=== PATIENT | female | born 1980 | race Caucasian/White ===

== ENCOUNTER 2022-11-03 18:26 | Emergency (ER) | payer OTHER, SELFPAY ==
[2022-11-03 18:32] VITALS: BP 123/76; PULSE 86; RESP 17; TEMP 37.9; O2SAT 99; BMI 30.2
--- NOTE | 2022-11-03 19:15 | PC.NURSE ---
Pt has dry skin to left elbow and exfoliated yesterday and today left elbow is now red, swollen, and sore to touch. Pt states it hurts to move. Pt has chills and low grade fever at this time.
--- NOTE | 2022-11-03 19:19 | ED.SKABFB1 ---
HPI - Skin/Abscess/Foreign Bdy General Chief complaint: Skin/Abscess/Foreign Body Stated complaint: ELBOW INJURY Time Seen by Provider: 11/03/22 19:04 Source: patient Mode of arrival: walk-in Limitations: no limitations History of Present Illness HPI narrative: This 42-year-old female presents for evaluation of left elbow tenderness with pain with range of motion, mild swelling, redness and chills today. The patient exfoliated her elbows on Monday while in the shower. She has a history of dry skin on her elbows. She states that she worked out yesterday and today started having some pain in her left elbow that she thought was from working out. She then touched it and it was warm and tender. She has mild swelling, an area of open skin and redness at the left elbow bursa. She is right-hand dominant. She is not diabetic. She does have a mild sore throat and a swollen lymph node on the right and states her family is getting over a viral infection. She denies any cough, chest pain, nausea or vomiting. Related Data Allergies Allergy/AdvReac Type Severity Reaction Status Date / Time No Known Drug Allergies Allergy Verified 11/03/22 18:32 Review of Systems ROS Status of ROS 10 or more systems reviewed and unremarkable except as noted in history and below [facility] Social History Smoking status: Never smoker Exam Narrative Exam Narrative: Constitutional: Well appearing female resting comfortably on a stretcher, no distress noted Vital signs: Patient is febrile with a temperature of 100.2, and she has normal pulse, normal blood pressure, she is not hypoxic with pulse ox 99 percent on room air HEENT: Normocephalic atraumatic, mucous memberss are moist and pink, oropharynx is normal-appearing with no redness or swelling of the posterior pharynx or tonsils Neck: Supple, no meningeal signs, small right-sided anterior cervical lymphadenopathy Chest: Lungs are clear with good air entry, there is no wheezing rhonchi or rales appreciated CVS: Regular rate and rhythm, no murmurs rubs or gallops Abdomen: Soft, nondistended, nontender no rebound guarding or rigidity Extremity: Mild swelling and tenderness to the bursa of the left elbow. There is an excoriated area of skin overlying the olecranon bursa. There is no lymphangitic streaking. Full range of motion appreciated, architect internship strengths are intact Neuro: No focal deficits Psych: Normal exam Constitutional Vital Signs - 24 hr 11/03/22 18:32 11/03/22 19:42 Temperature 100.2 F H 100.2 F H Pulse Rate [Monitor] 86 Respiratory Rate 17 Blood Pressure [Right Arm] 123/76 H Pulse Oximetry 99 Oxygen Delivery Method Room Air Course Vital Signs Vital signs: Vital Signs Temperature 100.2 F H 11/03/22 18:32 Pulse Rate 86 11/03/22 18:32 Respiratory Rate 17 11/03/22 18:32 Blood Pressure 123/76 H 11/03/22 18:32 Pulse Oximetry 99 11/03/22 18:32 Oxygen Delivery Method Room Air 11/03/22 18:32 Temperature 100.2 F H 11/03/22 19:42 Pulse Rate 86 11/03/22 18:32 Respiratory Rate 17 11/03/22 18:32 Blood Pressure 123/76 H 11/03/22 18:32 Pulse Oximetry 99 11/03/22 18:32 Oxygen Delivery Method Room Air 11/03/22 18:32 MDM - Skin/Abscess/Foreign Bdy MDM Narrative Medical decision making narrative: As 42-year-old female who is right-hand dominant presents for evaluation of redness, tenderness and swelling to the bursa of the left elbow. The patient exfoliated her elbow in the shower and has an area of skin over the left bursa. She states she started having some pain in this area today and thought it radiates froom working out but then she started having some chills. Her brother is a physician recycling assistant and she contacted him who referred her to the emergency department. She does not have a low-grade fever 100.2. She has no other nidus of infection that I was able to ascertain. She does not have a history of MRSA. An IV was placed and she was medicated with Tylenol, Toradol, IV fluids and 3 g of Unasyn. She has a mild elevation in white count at 13.4. She is otherwise stable for discharge. She'll be discharged home with recommendation for Epsom salts soaks 3-4 times a day and oral Augmentin. She was encouraged to return to emergency department for worsening symptoms, lymphangitic streaking, further decreased range of motion of the extremity or any concerns. Lab Data Labs: Lab Results 11/03/22 Range/Units 19:25 WBC 13.4 H (4.0-11.0) 10^3/uL RBC 4.49 (4.20-5.40) 10^6/uL Hgb 12.6 (12.0-16.0) g/dL Hct 39.1 (36.0-48.0) % MCV 87.1 (81.0-99.0) fL MCH 28.1 (26.7-34.0) pg MCHC 32.2 (29.9-35.2) g/dL RDW 13.3 (11.0-15.0) % Plt Count 433 (150-450) 10^3/uL MPV 9.5 (9.5-13.5) fL Neut % (Auto) 77.2 H (43.0-75.0) % Lymph % (Auto) 13.4 L (20.5-60.0) % [place] % (Auto) 6.9 (1.7-12.0) % Eos % (Auto) 1.6 (0.9-7.0) % Baso % (Auto) 0.6 (0.2-2.0) % Neut # (Auto) 10.4 H (1.4-6.5) 10^3/uL Lymph # (Auto) 1.8 (1.2-3.8) 10^3/uL [place] # (Auto) 0.9 H (0.3-0.8) 10^3/uL Eos # (Auto) 0.2 (0.0-0.7) 10^3/uL Baso # (Auto) 0.1 (0.0-0.1) 10^3/uL Abs Immat Gran (auto) 0.04 H (0.00-0.03) 10^3/uL Imm/Tot Granulo (auto) 0.3 (0.0-0.5) % Discharge Plan Discharge Chief Complaint: Skin/Abscess/Foreign Body Clinical Impression: Olecranon bursitis of left elbow, Cellulitis Patient Disposition: Home, Self-Care Time of Disposition Decision: 19:54 Condition: Good Stand Alone Forms: Portal Instructions Referrals: AMMON VERNON [Primary Care Provider] - 1 week
[2022-11-03 19:35] LABS: Basophils Absolute Auto 0.1 10^3/uL (0.0-0.1); Basophils Percent Auto 0.6 % (0.2-2.0); Eosinophils Absolute Auto 0.2 10^3/uL (0.0-0.7); Eosinophils Percent Auto 1.6 % (0.9-7.0); Hematocrit 39.1 % (36.0-48.0); Hemoglobin 12.6 g/dL (12.0-16.0); Immature Granulocytes Abs Auto 0.04 10^3/uL (0.00-0.03); Immature Granulocytes Pct Auto 0.3 % (0.0-0.5); Lymphocytes Absolute Auto 1.8 10^3/uL (1.2-3.8); Lymphocytes Percent Auto 13.4 % (20.5-60.0); Mean Corpuscular HGB Conc 32.2 g/dL (29.9-35.2); Mean Corpuscular Hemoglobin 28.1 pg (26.7-34.0); Mean Corpuscular Volume 87.1 fL (81.0-99.0); Mean Platelet Volume 9.5 fL (9.5-13.5); Monocytes Absolute Auto 0.9 10^3/uL (0.3-0.8); Monocytes Percent Auto 6.9 % (1.7-12.0); Neutrophils Absolute Auto 10.4 10^3/uL (1.4-6.5); Neutrophils Percent Auto 77.2 % (43.0-75.0); Platelet Count 433 10^3/uL (150-450); Red Blood Count 4.49 10^6/uL (4.20-5.40); Red Cell Distribution Width 13.3 % (11.0-15.0); White Blood Count 13.4 10^3/uL (4.0-11.0)
[2022-11-03 19:42] VITALS: TEMP 37.9
[2022-11-03] MEDS: KETOROLAC TROMETHAMINE 30 MG/ML VIAL IVP (19:42)
[2022-11-03] MEDS: ACETAMINOPHEN 325 MG TABLET 650 MG PO (19:42)
[2022-11-03] MEDS: AMPICILLIN SODIUM/SULBACTAM NA 3 GM in 0.9 % SODIUM CHLORIDE 100 ML IV (19:42)
[2022-11-03] MEDS: 0.9 % SODIUM CHLORIDE 1,000 ML 1000 ML IV (19:43)
[2022-11-03 20:16] VITALS: TEMP 38.4
== END 2022-11-03 20:42 | disposition home or self-care (01) ==
PROVIDERS: Emergency Provider Emergency Medicine; PCP Family Medicine
DX: M70.22 Olecranon bursitis, left elbow (principal); L03.114 Cellulitis of left upper limb; R50.9 Fever, unspecified
CPT/HCPCS: 36415; 85025; 96365; 96375; 99284

== ENCOUNTER 2022-11-04 11:17 | Observation (INO) | payer OTHER, SELFPAY ==
[2022-11-04] VITALS (11 sets, daily range): BP systolic 112–119; BP diastolic 73–81; PULSE 85–96; RESP 16–18; TEMP 37–38.3; O2SAT 95–100; BMI 30.2
--- NOTE | 2022-11-04 11:31 | XR_ITS ---
[facility] [place] [id number] Patient Name: JOHN SANTOS MRN: [id number] date: 1980 Sex: F Assigned Patient Location: ER Current Patient Location: ER Accession/Order Number: [id number] Exam Date: 11/04/2022 12:00 Report Date: 11/04/2022 12:23 At the request of: MARGARITA CAREY Procedure: XR elbow LT min 3V EXAMINATION: XR elbow LT min 3V, [id number] HISTORY: pain, cellulitis, swelling COMPARISON: None. FINDINGS/IMPRESSION: No fracture, dislocation, or suspicious osseous lesion. No elbow joint effusion. Moderate soft tissue swelling over the olecranon and extending distally along the proximal forearm. This is suspect for cellulitis as extent is more than typically seen with olecranon bursitis. No evidence of subcutaneous emphysema. Electronically authenticated by: LINDA PELAEZ Date: 11/04/2022 12:23
--- NOTE | 2022-11-04 11:32 | ED.EXTPRO1 ---
HPI - Extremity Problem General Chief complaint: Extremity Problem, Nontraumatic Stated complaint: LOCALIZED SWELLING/REDNESS LEFT ELBOW Time Seen by Provider: 11/04/22 11:19 Source: patient Mode of arrival: walk-in History of Present Illness HPI Narrative: 42-year-old female presented for redness and swelling to her left elbow. She was seen here last night and had blood work done and at that time had a fever. She was given IV antibiotics and discharged home. She hasn't even had a chance to fill her prescription yet and the redness has expanded. She did not have a fever at triage today. No vomiting. There was no injury but she had exfoliated some dry skin recently. The pain is moderate Related Data Allergies Allergy/AdvReac Type Severity Reaction Status Date / Time No Known Drug Allergies Allergy Verified 11/04/22 11:25 Review of Systems ROS Narrative A ten point review of systems is negative except as noted above. PFSH PFSH Social History Smoking status: Never smoker Exam Narrative Exam Narrative: Nurses note and vital signs reviewed and patient is not hypoxic. General: The patient appears well and in no apparent distress. Patient is resting comfortably on cart. Skin: Warm, dry, no pallor noted. There is no rash noted. Head: Normocephalic, atraumatic Eye: Normal conjunctiva, no drainage Ears, Nose, Mouth, and Throat: oral mucosa is moist. Nares patent. Cardiovascular: Regular Rate and Rhythm Respiratory: Patient is in no distress, no accessory muscle use, lungs are clear to auscultation, no wheezing, rales or rhonchi Back: non-tender GI: soft and nontender Musculoskeletal: left elbow has erythema and swelling. The area of erythema is far outside of the line that was drawn last night to indicate area of redness. Neurological: A&O x4, normal speech Psychiatric: Cooperative Constitutional Vital Signs - 24 hr 11/04/22 11:21 Temperature 98.6 F Pulse Rate [Monitor] 92 H Respiratory Rate 18 Blood Pressure [Right Arm] 119/81 H Pulse Oximetry 100 Oxygen Delivery Method Room Air Course Vital Signs Vital signs: Vital Signs Temperature 98.6 F 11/04/22 11:21 Pulse Rate 92 H 11/04/22 11:21 Respiratory Rate 18 11/04/22 11:21 Blood Pressure 119/81 H 11/04/22 11:21 Pulse Oximetry 100 11/04/22 11:21 Oxygen Delivery Method Room Air 11/04/22 11:21 Temperature 98.6 F 11/04/22 11:21 Pulse Rate 92 H 11/04/22 11:21 Respiratory Rate 18 11/04/22 11:21 Blood Pressure 119/81 H 11/04/22 11:21 Pulse Oximetry 100 11/04/22 11:21 Oxygen Delivery Method Room Air 11/04/22 11:21 MDM - Extremity (Nontraumatic) MDM Narrative Medical decision making narrative: WBC today is eighteen thousand, up from thirteen thousand last night. X-ray shows soft tissue swelling. I've no clinical suspicion of septic joint. My clinical impression is that she has cellulitis and she's failed outpatient therapy social be admitted. She was given IV vancomycin. Treatment diagnosis and its position were discussed with the patient. Differential Diagnosis Differential diagnosis: Likely cellulitis and other (bursitis, cellulitis, septic joint) Lab Data Attestation: I reviewed the patient's lab results. Labs: Lab Results 11/04/22 Range/Units 11:57 WBC 18.0 H (4.0-11.0) 10^3/uL RBC 4.37 (4.20-5.40) 10^6/uL Hgb 12.3 (12.0-16.0) g/dL Hct 38.6 (36.0-48.0) % MCV 88.3 (81.0-99.0) fL MCH 28.1 (26.7-34.0) pg MCHC 31.9 (29.9-35.2) g/dL RDW 13.2 (11.0-15.0) % Plt Count 425 (150-450) 10^3/uL MPV 9.4 L (9.5-13.5) fL Neut % (Auto) 75.4 H (43.0-75.0) % Lymph % (Auto) 12.6 L (20.5-60.0) % [place] % (Auto) 10.5 (1.7-12.0) % Eos % (Auto) 0.6 L (0.9-7.0) % Baso % (Auto) 0.5 (0.2-2.0) % Neut # (Auto) 13.5 H (1.4-6.5) 10^3/uL Lymph # (Auto) 2.3 (1.2-3.8) 10^3/uL [place] # (Auto) 1.9 H (0.3-0.8) 10^3/uL Eos # (Auto) 0.1 (0.0-0.7) 10^3/uL Baso # (Auto) 0.1 (0.0-0.1) 10^3/uL Abs Immat Gran (auto) 0.08 H (0.00-0.03) 10^3/uL Imm/Tot Granulo (auto) 0.4 (0.0-0.5) % Sodium 137 (136-145) mmol/L Potassium 3.8 (3.5-5.1) mmol/L Chloride 105 (98-107) mmol/L Carbon Dioxide 20.8 L (21.0-32.0) mmol/L Anion Gap 15.0 BUN 6.0 L (7.0-18.0) mg/dL Creatinine 0.92 (0.55-1.02) mg/dL Est GFR ( Amer) >60 (>=60) Est GFR (Non-Af Amer) >60 (>=60) BUN/Creatinine Ratio 6.5 Glucose 106 (74-106) mg/dL Calcium 9.2 (8.5-10.1) mg/dL Discharge Plan Discharge Chief Complaint: Extremity Problem, Nontraumatic Clinical Impression: Cellulitis Patient Disposition: Admitted As Inpatient Time of Disposition Decision: 12:42 Condition: Good Referrals: AMMON VERNON [Primary Care Provider] - 1 week
--- NOTE | 2022-11-04 11:58 | PC.NURSE ---
left elbow swollen painful and red. pt states was seen last night in er for same issue and was given iv ATB for cellulitis. pt states symptoms became worse today and felt she needed to be seen again. pt also states she was given a written script for ATB but has not filled them yet.
[2022-11-04 12:08] LABS: Basophils Absolute Auto 0.1 10^3/uL (0.0-0.1); Basophils Percent Auto 0.5 % (0.2-2.0); Eosinophils Absolute Auto 0.1 10^3/uL (0.0-0.7); Eosinophils Percent Auto 0.6 % (0.9-7.0); Hematocrit 38.6 % (36.0-48.0); Hemoglobin 12.3 g/dL (12.0-16.0); Immature Granulocytes Abs Auto 0.08 10^3/uL (0.00-0.03); Immature Granulocytes Pct Auto 0.4 % (0.0-0.5); Lymphocytes Absolute Auto 2.3 10^3/uL (1.2-3.8); Lymphocytes Percent Auto 12.6 % (20.5-60.0); Mean Corpuscular HGB Conc 31.9 g/dL (29.9-35.2); Mean Corpuscular Hemoglobin 28.1 pg (26.7-34.0); Mean Corpuscular Volume 88.3 fL (81.0-99.0); Mean Platelet Volume 9.4 fL (9.5-13.5); Monocytes Absolute Auto 1.9 10^3/uL (0.3-0.8); Monocytes Percent Auto 10.5 % (1.7-12.0); Neutrophils Absolute Auto 13.5 10^3/uL (1.4-6.5); Neutrophils Percent Auto 75.4 % (43.0-75.0); Platelet Count 425 10^3/uL (150-450); Red Blood Count 4.37 10^6/uL (4.20-5.40); Red Cell Distribution Width 13.2 % (11.0-15.0)
[2022-11-04 12:28] LABS: BUN Creatinine Ratio 6.5; Calcium 9.2 mg/dL (8.5-10.1); Carbon Dioxide 20.8 mmol/L (21.0-32.0); Chloride 105 mmol/L (98-107); Estimated GFR (African America >60 (>=60); Estimated GFR (Non-African Ame >60 (>=60); Glucose 106 mg/dL (74-106); Potassium 3.8 mmol/L (3.5-5.1); Sodium 137 mmol/L (136-145)
[2022-11-04] MEDS: VANCOMYCIN HCL 2,000 MG in 0.9 % SODIUM CHLORIDE 500 ML 250 MG IV (13:08)
[2022-11-04] MEDS: 0.9 % SODIUM CHLORIDE 1,000 ML 1000 ML IV ×2 (15:25→16:31)
[2022-11-04] MEDS: LACTATED RINGER'S SOLUTION 1,000 ML 125 ML IV (17:52)
[2022-11-04] MEDS: ENOXAPARIN SODIUM 40 MG/0.4 ML SYRINGE SUBQ (17:53)
[2022-11-04] MEDS: LINEZOLID IN DEXTROSE 5% 600 MG/300 ML PIGGYBACK 300 MG IV (17:53)
[2022-11-04] MEDS: ACETAMINOPHEN 325 MG TABLET 650 MG PO (21:06)
[2022-11-05] VITALS (15 sets, daily range): BP systolic 105–116; BP diastolic 64–74; PULSE 77–91; RESP 18–20; TEMP 37.2–37.7; O2SAT 91–95
--- NOTE | 2022-11-05 00:20 | P.HP_ITS ---
H&P: HPI History of Present Illness Chief complaint: LOCALIZED SWELLING/REDNESS LEFT ELBOW Narrative: Delayed note for my encounter on 11/04/22 42 y o with no sig PMHx was seen in ED on 11/03 for pain/erythema over left elbow for which she received IV unasyn and was discharged on oral abx for cellulitis. Patient came back next day with sig worsening of her symptoms along with fevers, increased HR. Swelling, erythema and skin induration was noted to have sig worsened and had spread beyond original demarcation line drawn in ED visit on 11/03. She also had worsening leukocytosis, tachycardia and presentation was c/w Sepsis. Patient admitted for observation for sepsis sec to Cellulitis. In ED she receied IV vancomycin which was switched to Zyvox for ease of administration. Patient feels better after initial resuscitation. She is able to move her elbow joint and there is no concern for possible joint involvement. Patient denies any sig trauma to her elbow. Review of Systems ROS Status of ROS 10 or more systems reviewed and unremarkable except as noted in history and below [facility] Medical History Surgical History Social History Smoking status: Never smoker Do you think of yourself as: straight/heterosexual Gender Identity: female Meds Home Medications and Allergies Home Medications Medication Instructions Recorded Confirmed Type metoprolol succinate 25 mg 25 mg PO DAILY 11/04/22 11/04/22 History tablet,extended release 24 hr Allergies Allergy/AdvReac Type Severity Reaction Status Date / Time No Known Drug Allergies Allergy Verified 11/04/22 11:25 Exam Constitutional Vital Signs - 24 hr 11/04/22 11:21 11/04/22 14:30 11/04/22 14:30 Temperature 98.6 F 100.4 F H Pulse Rate 94 H Pulse Rate [Monitor] 92 H 94 H Respiratory Rate 18 16 Blood Pressure [Right Arm] 119/81 H 113/73 Pulse Oximetry 100 96 Oxygen Delivery Method Room Air Room Air Room Air 11/04/22 15:52 11/04/22 17:55 11/04/22 19:24 Temperature Pulse Rate 95 H 95 H Pulse Rate [Monitor] Respiratory Rate 16 Blood Pressure [Right Arm] Pulse Oximetry Oxygen Delivery Method 11/04/22 19:53 11/04/22 20:57 11/04/22 21:06 Temperature 100.4 F H 100.9 F H Pulse Rate 93 H 91 H Pulse Rate [Monitor] Respiratory Rate 18 Blood Pressure [Right Arm] 112/73 Pulse Oximetry 95 Oxygen Delivery Method Room Air 11/04/22 21:52 11/04/22 22:22 11/04/22 23:57 Temperature 99.8 F H Pulse Rate 96 H 85 Pulse Rate [Monitor] Respiratory Rate Blood Pressure [Right Arm] Pulse Oximetry Oxygen Delivery Method Documenting provider has reviewed patient's vital signs: yes Common normals: no apparent distress General appearance: cooperative and comfortable HENMT Common normals: normocephalic and head/scalp atraumatic Eye Common normals: conjunctivae normal and no scleral icterus Respiratory Common normals: normal respiratory effort, no use of accessory muscles and clear to auscultation bilaterally Cardio Common normals: no JVD, regular rate, regular rhythm, S1 normal heart sound, S2 normal heart sound and no murmurs GI Common normals: Normal to inspection, nondistended, normoactive bowel sounds present, soft to palpation, non-tender and no hepatosplenomegaly Extremity Common normals: full ROM Left upper extremity: elbow joint Left elbow: inspection (Swelling, erythema of skin around elbow joint. Skin induration. ), ROM (normal ROM) and neurovascular exam (Normal pulse, sensation) Neuro Common normals: oriented x3, moves all extremities, no focal motor deficits and no sensory deficits noted Psych Common normals: mental status grossly normal, thought process normal, denies homicidal ideation and denies suicidal ideation Results Labs Labs: Short CBC 11/04/22 Range/Units 11:57 WBC 18.0 H (4.0-11.0) 10^3/uL Hgb 12.3 (12.0-16.0) g/dL Hct 38.6 (36.0-48.0) % Plt Count 425 (150-450) 10^3/uL BMP 11/04/22 11:57 Sodium 137 Potassium 3.8 Chloride 105 Carbon Dioxide 20.8 L BUN 6.0 L Creatinine 0.92 Glucose 106 Calcium 9.2 Assessment and Plan Assessment and Plan (1) Sepsis: Assessment and Plan: HR >90, Tmax 100.9, WBC 18 k with source of infection. On IV zyvox. C/w IVF F/u cx. No drainable abscess based on exam Qualifiers: Sepsis type: sepsis due to unspecified organism Sepsis acute organ dysfunction status: without acute organ dysfunction Qualified Code(s): A41.9 - Sepsis, unspecified organism (2) Cellulitis: Assessment and Plan: left elbow cellulitis. on IV fluids, IV zyvox. No evidence of joint involvement. Check A1C
[2022-11-05] MEDS: LACTATED RINGER'S SOLUTION 1,000 ML 125 ML IV ×3 (02:25→21:00)
[2022-11-05] MEDS: LINEZOLID IN DEXTROSE 5% 600 MG/300 ML PIGGYBACK 150 MG IV (04:00)
[2022-11-05 05:37] LABS: Basophils Absolute Auto 0.1 10^3/uL (0.0-0.1); Basophils Percent Auto 0.5 % (0.2-2.0); Eosinophils Absolute Auto 0.2 10^3/uL (0.0-0.7); Eosinophils Percent Auto 1.4 % (0.9-7.0); Hematocrit 32.5 % (36.0-48.0); Hemoglobin 10.5 g/dL (12.0-16.0); Immature Granulocytes Abs Auto 0.08 10^3/uL (0.00-0.03); Immature Granulocytes Pct Auto 0.5 % (0.0-0.5); Lymphocytes Absolute Auto 2.7 10^3/uL (1.2-3.8); Lymphocytes Percent Auto 18.5 % (20.5-60.0); Mean Corpuscular HGB Conc 32.3 g/dL (29.9-35.2); Mean Corpuscular Hemoglobin 28.2 pg (26.7-34.0); Mean Corpuscular Volume 87.4 fL (81.0-99.0); Mean Platelet Volume 9.6 fL (9.5-13.5); Monocytes Absolute Auto 1.4 10^3/uL (0.3-0.8); Monocytes Percent Auto 9.2 % (1.7-12.0); Neutrophils Absolute Auto 10.3 10^3/uL (1.4-6.5); Neutrophils Percent Auto 69.9 % (43.0-75.0); Platelet Count 390 10^3/uL (150-450); Red Blood Count 3.72 10^6/uL (4.20-5.40); Red Cell Distribution Width 13.3 % (11.0-15.0); White Blood Count 14.7 10^3/uL (4.0-11.0)
[2022-11-05 05:51] LABS: Estimated Average Glucose 111 mg/dL; Glycohemoglobin A1C 5.5 % (4.5-6.2)
[2022-11-05 06:07] LABS: Alanine Aminotransferase 42 U/L (14-59); Albumin Globulin Ratio 0.8; Albumin Level 2.8 g/dL (3.4-5.0); Alkaline Phosphatase 82 U/L (46-116); Anion Gap 11.4; Aspartate Amino Transferase 40 U/L (15-37); BUN Creatinine Ratio 4.9; Bilirubin Total 0.7 mg/dL (0.2-1.0); Calcium 8.6 mg/dL (8.5-10.1); Carbon Dioxide 22.4 mmol/L (21.0-32.0); Chloride 109 mmol/L (98-107); Estimated GFR (African America >60 (>=60); Estimated GFR (Non-African Ame >60 (>=60); Globulin 3.7 g/dL; Glucose 131 mg/dL (74-106); Potassium 3.8 mmol/L (3.5-5.1); Sodium 139 mmol/L (136-145); Total Protein 6.5 g/dL (6.4-8.2)
[2022-11-05] MEDS: PIPERACILLIN SODIUM/TAZOBACTAM 3.375 GM in 0.9 % SODIUM CHLORIDE 50 ML IV ×2 (13:34→21:01)
--- NOTE | 2022-11-05 14:02 | PM.PN ---
Progress Note: Subjective Subjective Interval history: Patient feels well this am. Afebrile and no nausea. WBC improved. Redness around elbow has spread. Normal appetite and no emesis or diarrhea. No SOB or cough. No chest pain or palpitations. Exam Constitutional Vital Signs - 24 hr 11/04/22 14:30 11/04/22 14:30 11/04/22 15:52 Temperature 100.4 F H Pulse Rate 94 H 95 H Pulse Rate [Monitor] 94 H Respiratory Rate 16 Blood Pressure [Right Arm] 113/73 Pulse Oximetry 96 Oxygen Delivery Method Room Air Room Air 11/04/22 17:55 11/04/22 19:24 11/04/22 19:53 Temperature Pulse Rate 95 H 93 H Pulse Rate [Monitor] Respiratory Rate 16 Blood Pressure [Right Arm] Pulse Oximetry Oxygen Delivery Method 11/04/22 20:57 11/04/22 21:06 11/04/22 21:52 Temperature 100.4 F H 100.9 F H Pulse Rate 91 H 96 H Pulse Rate [Monitor] Respiratory Rate 18 Blood Pressure [Right Arm] 112/73 Pulse Oximetry 95 Oxygen Delivery Method Room Air 11/04/22 22:22 11/04/22 23:57 11/05/22 01:54 Temperature 99.8 F H Pulse Rate 85 81 Pulse Rate [Monitor] Respiratory Rate Blood Pressure [Right Arm] Pulse Oximetry Oxygen Delivery Method 11/05/22 03:55 11/05/22 05:02 11/05/22 07:53 Temperature 99 F Pulse Rate 81 77 80 Pulse Rate [Monitor] Respiratory Rate 18 Blood Pressure [Right Arm] 105/64 Pulse Oximetry 91 L Oxygen Delivery Method Room Air 11/05/22 09:46 11/05/22 11:52 Temperature Pulse Rate 86 91 H Pulse Rate [Monitor] Respiratory Rate Blood Pressure [Right Arm] Pulse Oximetry Oxygen Delivery Method Documenting provider has reviewed patient's vital signs: yes Common normals: no apparent distress, oriented x3 and alert HENMT Common normals: normocephalic Eye Common normals: PERRL and EOMs intact bilaterally Respiratory Common normals: clear to auscultation bilaterally Cardio Common normals: regular rate, no gallops, no murmurs and no rub GI Common normals: Normal to inspection, nondistended, normoactive bowel sounds present and non-tender Extremity General: no edema Left upper extremity: elbow joint (Mild swelling around elbow and erythema surrounding elbow into forearm ) Progress Note: Objective Labs Labs: Short CBC 11/05/22 Range/Units 05:05 WBC 14.7 H (4.0-11.0) 10^3/uL Hgb 10.5 L (12.0-16.0) g/dL Hct 32.5 L (36.0-48.0) % Plt Count 390 (150-450) 10^3/uL BMP 11/05/22 05:05 Sodium 139 Potassium 3.8 Chloride 109 H Carbon Dioxide 22.4 BUN 4.0 L Creatinine 0.81 Glucose 131 H Calcium 8.6 Liver Function 11/05/22 Range/Units 05:05 Total Bilirubin 0.7 (0.2-1.0) mg/dL AST 40 H (15-37) U/L ALT 42 (14-59) U/L Alkaline Phosphatase 82 (46-116) U/L Albumin 2.8 L (3.4-5.0) g/dL Progress Note: A&P Assessment and Plan (1) Sepsis: Qualifiers: Sepsis acute organ dysfunction status: without acute organ dysfunction Sepsis type: sepsis due to unspecified organism Qualified Code(s): A41.9 - Sepsis, unspecified organism (2) Cellulitis: Plan 1. Cellulitis left elbow 2. Sepsis Erythema worse but WBC improved and afebrile. Possibly related to toxins released from infection and not worsening of infection. Add zosyn and continue zyvox. Monitor and if erythema improved possibly home in am.
[2022-11-05] MEDS: LINEZOLID IN DEXTROSE 5% 600 MG/300 ML PIGGYBACK 300 MG IV (17:14)
[2022-11-06 01:51] VITALS: PULSE 83
[2022-11-06 03:55] VITALS: PULSE 80
[2022-11-06] MEDS: LINEZOLID IN DEXTROSE 5% 600 MG/300 ML PIGGYBACK 200 MG IV (04:31)
[2022-11-06] MEDS: LACTATED RINGER'S SOLUTION 1,000 ML 125 ML IV (04:35)
[2022-11-06 05:12] VITALS: BP 118/75; PULSE 84; RESP 20; TEMP 37.4; O2SAT 94
[2022-11-06 05:34] LABS: Basophils Absolute Auto 0.1 10^3/uL (0.0-0.1); Basophils Percent Auto 0.5 % (0.2-2.0); Eosinophils Absolute Auto 0.2 10^3/uL (0.0-0.7); Eosinophils Percent Auto 1.3 % (0.9-7.0); Hematocrit 32.5 % (36.0-48.0); Hemoglobin 10.5 g/dL (12.0-16.0); Immature Granulocytes Abs Auto 0.07 10^3/uL (0.00-0.03); Immature Granulocytes Pct Auto 0.5 % (0.0-0.5); Lymphocytes Absolute Auto 2.9 10^3/uL (1.2-3.8); Lymphocytes Percent Auto 19.5 % (20.5-60.0); Mean Corpuscular HGB Conc 32.3 g/dL (29.9-35.2); Mean Corpuscular Hemoglobin 27.9 pg (26.7-34.0); Mean Corpuscular Volume 86.4 fL (81.0-99.0); Mean Platelet Volume 9.6 fL (9.5-13.5); Monocytes Absolute Auto 1.2 10^3/uL (0.3-0.8); Monocytes Percent Auto 7.9 % (1.7-12.0); Neutrophils Absolute Auto 10.5 10^3/uL (1.4-6.5); Neutrophils Percent Auto 70.3 % (43.0-75.0); Platelet Count 427 10^3/uL (150-450); Red Blood Count 3.76 10^6/uL (4.20-5.40); Red Cell Distribution Width 13.2 % (11.0-15.0)
[2022-11-06 05:46] VITALS: PULSE 81
[2022-11-06 05:57] LABS: Alanine Aminotransferase 46 U/L (14-59); Albumin Globulin Ratio 0.7; Albumin Level 2.7 g/dL (3.4-5.0); Alkaline Phosphatase 91 U/L (46-116); Aspartate Amino Transferase 28 U/L (15-37); Bilirubin Total 0.6 mg/dL (0.2-1.0); Calcium 9.1 mg/dL (8.5-10.1); Carbon Dioxide 23.7 mmol/L (21.0-32.0); Chloride 108 mmol/L (98-107); Estimated GFR (African America >60 (>=60); Estimated GFR (Non-African Ame >60 (>=60); Globulin 4.1 g/dL; Glucose 119 mg/dL (74-106); Potassium 3.7 mmol/L (3.5-5.1); Sodium 140 mmol/L (136-145); Total Protein 6.8 g/dL (6.4-8.2)
[2022-11-06] MEDS: PIPERACILLIN SODIUM/TAZOBACTAM 3.375 GM in 0.9 % SODIUM CHLORIDE 50 ML IV (06:01)
[2022-11-06 07:52] VITALS: PULSE 77
[2022-11-06 09:54] VITALS: PULSE 83
--- NOTE | 2022-11-06 14:34 | PM.DS1 ---
DS: Providers Provider Date of admission: 11/04/22 14:35 Primary care physician: AMMON VERNON DS: Diagnosis Discharge Diagnosis (1) Sepsis: Qualifiers: Sepsis type: sepsis due to unspecified organism Sepsis acute organ dysfunction status: without acute organ dysfunction Qualified Code(s): A41.9 - Sepsis, unspecified organism (2) Cellulitis: Plan Primary diagnosis: Cellulitis left elbow Secondary diagnosis: Sepsis DS: Summary Hospital Course Hospital Course: Reason for admission: See ER note and H&P for details. 42 y/o female to ER with redness and swelling of left elbow. Developed pain, redness and swelling over a few days. To ER night prior and given IV unasyn for cellulitis. Discharged home with script for oral antibiotics. Next am woke up with worsening redness, pain, and swelling. Did not have a chance to start oral antibiotics. Returned to ER and WBC elevated. Temp 100.9. X-ray with soft tissue swelling but no evidence of osteomyelitis. Admited for treatment. Hospital course: Started lV zyvox. Patient slowly improved. Mild pain and worse if attempt to bend elbow. WBC improved and afebrile. Redness initially started to spread beyond demarcated border on elbow. Added zosyn. Continued to do well. WBC improved and afebrile. Redness and swelling much improved. Mild pain. Discharged home in stable condition. Will take oral bactrim and augmentin x 10 days. F/u with PCP in 1-2 weeks. Status at Discharge Functional status at discharge: independent ambulation Overall status at discharge: patient is back to baseline Time Spent with Patient Time attestation: Total time spent providing and/or coordinating discharge services: Exam Constitutional Vital Signs - 24 hr 11/05/22 15:55 11/05/22 17:38 11/05/22 19:15 Temperature Pulse Rate 90 91 H Respiratory Rate 18 Blood Pressure [Right Arm] Pulse Oximetry Oxygen Delivery Method 11/05/22 20:00 11/05/22 21:26 11/05/22 22:00 Temperature 99.9 F H Pulse Rate 88 88 84 Respiratory Rate 20 Blood Pressure [Right Arm] 116/74 Pulse Oximetry 95 Oxygen Delivery Method Room Air 11/05/22 23:48 11/06/22 01:51 11/06/22 03:55 Temperature Pulse Rate 90 83 80 Respiratory Rate Blood Pressure [Right Arm] Pulse Oximetry Oxygen Delivery Method 11/06/22 05:12 11/06/22 05:46 11/06/22 07:52 Temperature 99.3 F Pulse Rate 84 81 77 Respiratory Rate 20 Blood Pressure [Right Arm] 118/75 Pulse Oximetry 94 L Oxygen Delivery Method Room Air 11/06/22 09:54 Temperature Pulse Rate 83 Respiratory Rate Blood Pressure [Right Arm] Pulse Oximetry Oxygen Delivery Method Documenting provider has reviewed patient's vital signs: yes Common normals: no apparent distress, oriented x3 and alert HENMT Common normals: normocephalic Eye Common normals: PERRL and EOMs intact bilaterally Respiratory Common normals: clear to auscultation bilaterally Cardio Common normals: regular rate, regular rhythm, no gallops, no murmurs and no rub GI Common normals: Normal to inspection, nondistended, normoactive bowel sounds present and non-tender Extremity General: no edema Left upper extremity: elbow joint (Mild swelling and erythema but improved from day prior) DS: Data Data Completed and Pending Labs on day of discharge: Labs from last 24 hours 11/06/22 04:55 WBC 15.0 H RBC 3.76 L Hgb 10.5 L Hct 32.5 L MCV 86.4 MCH 27.9 MCHC 32.3 RDW 13.2 Plt Count 427 MPV 9.6 Neut % (Auto) 70.3 Lymph % (Auto) 19.5 L [place] % (Auto) 7.9 Eos % (Auto) 1.3 Baso % (Auto) 0.5 Neut # (Auto) 10.5 H Lymph # (Auto) 2.9 [place] # (Auto) 1.2 H Eos # (Auto) 0.2 Baso # (Auto) 0.1 Abs Immat Gran (auto) 0.07 H Imm/Tot Granulo (auto) 0.5 Sodium 140 Potassium 3.7 Chloride 108 H Carbon Dioxide 23.7 Anion Gap 12.0 BUN 5.0 L Creatinine 0.84 Est GFR ( Amer) >60 Est GFR (Non-Af Amer) >60 BUN/Creatinine Ratio 6.0 Glucose 119 H Calcium 9.1 Total Bilirubin 0.6 AST 28 ALT 46 Alkaline Phosphatase 91 Total Protein 6.8 Albumin 2.7 L Globulin 4.1 Albumin/Globulin Ratio 0.7 Preliminary micro results at discharge 11/04/22 11:54 - Preliminary Blood NO GROWTH AT 36-48 HOURS. FINAL TO FOLLOW. 11/04/22 11:41 Blood Culture Result 1 - Preliminary Blood NO GROWTH AT 36-48 HOURS. FINAL TO FOLLOW. Discharge Plan Discharge Disposition: Home, Self-Care Condition: Good Discharge Medications: New amoxicillin-pot clavulanate 875-125 mg tablet 1 tab PO BID 10 Days Qty: 20 0RF sulfamethoxazole-trimethoprim [Bactrim DS] 800-160 mg tablet 1 tab PO BID 10 Days Qty: 20 0RF No Action metoprolol succinate 25 mg tablet extended release 24 hr 25 mg PO DAILY Activity: increase activity as tolerated and resume usual activities as tolerated Diet: advance to your usual diet Patient Instructions: Cellulitis (ED) Forms: Portal Instructions Follow Up Appointments: Follow up with Dr Vernon in 1 week [phone] Discharge Date/Time: 11/06/22 12:38
--- NOTE | 2022-11-07 15:13 | CM.DCFOLLOWU ---
Person spoke with:patient How are you feeling? well How is your pain? same as before Did you understand your discharge instructions? yes Do you have any questions about your discharge instructions? no Were you given any prescriptions at discharge? yes Were you able to get your prescriptions filled? yes Do you understand how to take your medications as ordered? yes Do you have any questions about your follow up appointment and do you plan to keep your follow up appointment? no questions, PCP closed today, will call Monday Is there anything else that you would like to discuss? no Questions/Comments/Concerns/Other:
== END 2022-11-06 12:38 | disposition home or self-care (01) ==
LOC: ER 14:31 → MS 15:31
PROVIDERS: Admitting Provider Family Medicine; Emergency Provider Emergency Medicine; PCP Family Medicine; Visit Provider Internal Medicine
DX: A41.9 Sepsis, unspecified organism (principal); L03.114 Cellulitis of left upper limb; Z79.899 Other long term (current) drug therapy
CPT/HCPCS: 36415; 73080; 80048; 80053; 83036; 85025; 87040; 96365; 96366; 96367; 96372; 99285; G0378; J2020; J3370